=== PATIENT | female | born 1990 | race Caucasian/White ===

== ENCOUNTER 2017-02-16 04:59 | Inpatient (IN) | payer BC ==
[2017-02-16] MEDS ORDERED: Sodium Chloride 0.9% 10 ML Syringe FLUSH PRN (05:31)
[2017-02-16] MEDS ORDERED: Nalbuphine 10 MG/1 ML Vial IVPUSH PRN (05:31)
[2017-02-16] MEDS ORDERED: Methylergonovine 0.2 MG/1 ML Amp IM PRN (05:31)
[2017-02-16] MEDS ORDERED: Lidocaine 1% 50 ML MDV INJECT PRN (05:31)
[2017-02-16] MEDS ORDERED: Butorphanol 1 MG/ML SDV IVPUSH PRN (05:31)
[2017-02-16] MEDS ORDERED: Carboprost Tromethamine 250 MCG/1 ML Amp IM PRN (05:31)
[2017-02-16] MEDS ORDERED: Sodium Chloride 0.9% 2.5 ML Syringe FLUSH PRN (05:31)
[2017-02-16] MEDS ORDERED: Misoprostol 200 MCG Tab PO PRN (05:31)
[2017-02-16] MEDS ORDERED: Water For Irrigation,Sterile 1,000 ML Container IRR PRN (05:31)
[2017-02-16] MEDS ORDERED: Ondansetron 4 MG/2 ML SDV IV PRN (05:31)
[2017-02-16] MEDS ORDERED: Oxytocin/0.9 % Sodium Chloride 30 UNIT/500 ML BAG IV SCH (05:45)
[2017-02-16] MEDS: Lactated Ringers 1,000 ML IV SCH ×3 (05:58→08:30)
[2017-02-16] MEDS ORDERED: fentaNYL 100 MCG/2 ML SDV ONE (07:25)
[2017-02-16] MEDS ORDERED: Ropivacaine HCl/PF 100 ML ONE (07:26)
[2017-02-16] MEDS ORDERED: Ropivacaine 0.2% 2 MG/ML 20 ML SDV ONE (07:26)
--- NOTE | 2017-02-16 08:44 | PCM.PREANE ---
Preanesthetic Assessment - Anesthesia/Transfusion/Family Hx Anesthesia History: Prior Anesthesia Without Reaction Family History of Anesthesia Reaction: No Transfusion History: Prior Transfusion Without Reaction - Review of Systems General: No Symptoms Pulmonary: No Symptoms Cardiovascular: No Symptoms Gastrointestinal: No Symptoms Neurological: No Symptoms Other: Reports: None - Physical Assessment Height: 1.6 m Weight: 73.482 kg ASA Class: 2 Mental Status: Alert & Oriented x3 Airway Class: Mallampati = 2 Dentition: Reports: Normal Dentition Thyro-Mental Finger Breadths: 3 Mouth Opening Finger Breadths: 3 ROM/Head Extension: Full Lungs: Clear to Auscultation, Normal Respiratory Effort Cardiovascular: Regular Rate, Regular Rhythm - Lab Values: Laboratory Last Values WBC 9.16 K/uL (4.0-11.0) 02/16/17 05:46 RBC 4.17 M/uL (4.30-5.90) L 02/16/17 05:46 Hgb 12.3 g/dL (12.0-16.0) 02/16/17 05:46 Hct 38.0 % (36.0-46.0) 02/16/17 05:46 MCV 91.1 fL (80.0-98.0) 02/16/17 05:46 MCH 29.5 pg (27.0-32.0) 02/16/17 05:46 MCHC 32.4 g/dL (31.0-37.0) 02/16/17 05:46 RDW Std Deviation 45.4 fl (28.0-62.0) 02/16/17 05:46 RDW Coeff of Debbie 14 % (11.0-15.0) 02/16/17 05:46 Plt Count 221 K/uL (150-400) 02/16/17 05:46 MPV 9.70 fL (7.40-12.00) 02/16/17 05:46 Nucleated RBC % 0.0 /100WBC 02/16/17 05:46 Nucleated RBCs # 0 K/uL 02/16/17 05:46 Blood Type O POSITIVE 02/16/17 05:46 Antibody Screen NEGATIVE 02/16/17 05:46 - Allergies Allergies/Adverse Reactions: Allergies Allergy/AdvReac Type Severity Reaction Status Date / Time No Known Allergies Allergy Verified 07/19/16 21:03 - Blood Blood Available: Yes Product(s) Available: PRBC - Acknowledgements Anesthesia Type Planned: Epidural Pt an Appropriate Candidate for the Planned Anesthesia: Yes Alternatives and Risks of Anesthesia Discussed w Pt/Guardian: Yes Pt/Guardian Understands and Agrees with Anesthesia Plan: Yes PreAnesthesia Questionnaire Cardiovascular History: Reports: None Other Cardiovascular History: 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 [No Known Home Meds] 07/19/16 [History] - CURRENT (IN HOUSE) MEDS Current Meds: Current Medications Butorphanol Tartrate (Stadol) 1 mg IVPUSH Q1H PRN PRN Reason: Pain Carboprost Tromethamine (Hemabate Ds) 250 mcg IM ASDIRECTED PRN PRN Reason: Post Hemorrhage Lactated Ringer's (Ringers, Lactated) 1,000 mls @ 150 mls/hr IV ASDIRECTED POOL Last Admin: 02/16/17 08:30 Dose: 500 mls/hr Oxytocin/Sodium Chloride (Oxytocin 30 Unit/500 Ml-Ns) 30 unit in 500 mls @ 500 mls/hr IV TITRATE POOL Lidocaine HCl (Xylocaine 1%) 50 ml INJECT .ONCE PRN PRN Reason: Laceration repair Methylergonovine Maleate (Methergine) 0.2 mg IM ASDIRECTED PRN PRN Reason: Post Hemorrhage Misoprostol (Cytotec) 200 mcg PO .ONCE PRN PRN Reason: Post Hemorrhage Nalbuphine HCl (Nubain) 10 mg IVPUSH Q1H PRN PRN Reason: Pain (severe 7-10) Ondansetron HCl (Zofran) 4 mg IV Q4H PRN PRN Reason: Nausea/Vomiting Last Admin: 02/16/17 05:58 Dose: 4 mg Sodium Chloride (Saline Flush) 10 ml FLUSH ASDIRECTED PRN PRN Reason: Keep Vein Open Sodium Chloride (Saline Flush) 2.5 ml FLUSH ASDIRECTED PRN PRN Reason: Keep Vein Open Sterile Water (Sterile Water For Irrigation) 1,000 ml IRR ASDIRECTED PRN PRN Reason: delivery Discontinued Medications Fentanyl (Sublimaze) Confirm Administered Dose 300 mcg .ROUTE .STK-MED ONE Stop: 02/16/17 07:26 Ropivacaine (Naropin 0.2%) Confirm Administered Dose 100 mls @ as directed .ROUTE .STK-MED ONE Stop: 02/16/17 07:27 Ropivacaine (Naropin 0.2%) Confirm Administered Dose 20 ml .ROUTE .STK-MED ONE Stop: 02/16/17 07:27 - Pre-Procedure Checklist Attending Provider Aware: Yes Chart Reviewed: Yes Consent Signed: Yes Labs Reviewed: Yes VS/FHR Reviewed: Yes Patient Identification Confirmation Method: Reports: ID Band Visual, Verbal Patient Pt an Appropriate Candidate for the Planned Anesthesia: Yes Alternatives and Risks of Anesthesia Discussed w Pt/Guardian: Yes - Procedure Procedure Start Date: 02/16/17 Procedure Start Time: 07:[address]: Reports: Blood Pressure, Heart Rate, SPO2 Functional IV: Yes Bolus Infused (fluid type and amount): 1000 ml LR Safety Measures: Reports: Patient Identified, Procedure Verified, Site Verified , Procedure Time Out Patient Position: Reports: Sitting (@ 0739) Prep: Reports: Betadine x3, Sterile Drape Local Anesthetic: Reports: Intradermal Wheal w Lidocaine 1% Needle: Reports: 17 g Touhy Approach: Reports: Midline Technique: Reports: JEAN-PAUL Glass Syringe JEAN-PAUL Needle Depth (cm): 4 cm Parasthesia: Reports: None Fluid Obtained: Reports: None Catheter Depth at Skin (cm): 20 cm (@ 0746) Test Dose Time: 07:46 Test Dose Medication: Reports: Lidocaine 1.5% w Epinephrine 1:200,000 Test Dose Response: Reports: Negative Loading Dose Time: 07:51 (Given in 1 ml increments over 17 minutes) Loading Dose Medication: 100 mcg fentanyl followed by 2 ml 0.2% ropivacaine Loading Dose Patient Position: semi fowlers with MARCELLE Continuous Infusion Start Time: 08:08 Continuous Infusion Medication: 100 ml 0.2% ropivacaine with 200 mcg fentanyl added (2mcg/ml) Continuous Infusion Rate: 6 ml/hr Continuous Infusion PCS Bolus Option: 5 ml every 15 min Patient Position Post Placement: Reports: Semi-fowlers/MARCELLE Post-procedure Pain Level: "0/10" VS and FHR Monitored in Unit Post Placement: Yes Procedure End Date: 02/16/17 Procedure End Time: 08:45
[2017-02-16] MEDS ORDERED: Aluminum Hydroxide/Magnesium Hydroxide/Simethicone Susp 30 ML Cup PO PRN (17:54)
[2017-02-16] MEDS ORDERED: Witch Hazel Medicated Pads 40/Jar TOP PRN (17:54)
[2017-02-16] MEDS ORDERED: Ibuprofen 400 MG Tab PO PRN (17:54)
[2017-02-16] MEDS ORDERED: oxyCODONE 5 MG Tab PO PRN (17:54)
[2017-02-16] MEDS ORDERED: Acetaminophen 500 MG Tab PO PRN (17:54)
[2017-02-16] MEDS ORDERED: Bisacodyl 10 MG Supp RECTAL PRN (17:54)
[2017-02-16] MEDS ORDERED: Benzocaine/Menthol 20%-0.5% Spray 78 GM Cannister TOP PRN (17:54)
[2017-02-16] MEDS ORDERED: Docusate Sodium 100 MG Cap PO PRN (17:54)
[2017-02-16] MEDS ORDERED: Lanolin 100% Cream 7 GM Tube TOP PRN (17:54)
--- NOTE | 2017-02-16 18:59 | OR ---
SURGEON: Sydni Alexander M.D. DATE OF PROCEDURE: 02/16/2017 PREOPERATIVE DIAGNOSES: 1. 40 and 5-week intrauterine . 2. Spontaneous rupture of membranes. 3. Group B beta strep negative. 4. Labor. POSTOPERATIVE DIAGNOSES: 1. 40 and 5-week intrauterine . 2. Spontaneous rupture of membranes. 3. Group B beta strep negative. 4. Labor. PROCEDURE: Spontaneous vaginal delivery, intact perineum. ESTIMATED BLOOD LOSS: 300 mL. ANESTHESIA: Epidural. COMPLICATIONS: None. FINDINGS: Viable female. score 8 at 1 minute and 9 at 5 minutes. Weight of 4045 grams. Spontaneous delivery, intact placenta, and three-vessel cord. DISPOSITION: Infant to nursery and mom in LDRP, stable. 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 She was starting to feel some regular contractions. She denied any vaginal bleeding. She has noted good movement. On initial examination, the patient was found to be 1 to 2 cm, 60% effaced, -3 station. Therefore, she was admitted and routine labs were drawn. She was grossly ruptured. Clear fluid was present. Category-one heart tones were noted. The patient was then observed, and she did make spontaneous cervical change, became increasingly uncomfortable and underwent regional anesthesia in the form of epidural. She continued to progress throughout the afternoon hours. Shortly before 1 p.m., she was found to be 4 to 5 cm, 80% effaced, and -2 station. heart tones 140s. Shortly before 3:00 p.m., she was found to be complete, 100% effaced, and -1 station. She was allowed to continue to labor until she was approximately -1 to 0 station next hour. She began pushing efforts and pushed effectively for over the next hour. I was called for delivery. Upon my arrival, the patient was placed in modified dorsal lithotomy position. She was prepped and draped in the usual aseptic manner. She was +2 station. She continued with pushing efforts and was able to push adequately to a +4 station. Delivered the infant's head atraumatically, spontaneously, followed by anterior shoulder, posterior shoulder, and remainder of the body. There was a nuchal cord x1. This was reduced manually. The 's oropharynx and nares bulb suctioned. Cord was clamped x2 and cut. Infant was handed off to her mother with attending nursing staff at her side. Cord arterial, cord venous, and cord blood sampling was obtained. Light suprapubic pressure was applied while the placenta was delivered spontaneously intact. Vigorous fundal uterine massage was then applied while 30 units of Pitocin was delivered in 500 mL of IV fluid. Upon inspection of cervix, vaginal sidewalls, perineum, these were found to be intact. The patient has tolerated this procedure well overall. Uterus remained firm. Hemostasis evident. Sponge count is correct. The patient remained in LDRP and in nursery. VERITO LIU /[id number]
[2017-02-17] MEDS: Acetaminophen 500 MG Tab PO PRN ×2 (03:54→13:20)
--- NOTE | 2017-02-17 08:32 | PCM.PNPP ---
<Peg Flores - Last Filed: 02/17/17 08:28> - General Info Date of Service: 02/17/17 Functional Status: Reports: Pain Controlled, Tolerating Diet, Ambulating, Urinating - Review of Systems General: Denies: Fever, Weakness, Fatigue Pulmonary: Denies: Shortness of Breath, Pleuritic Chest Pain, Cough Cardiovascular: Denies: Chest Pain, Palpitations, Dyspnea on Exertion Gastrointestinal: Denies: Abdominal Pain, Constipation, Diarrhea - General Info Date of Service: 02/17/17 - Patient Data Vital Signs - Most Recent: Last Vital Signs Temp 36.6 C 02/17/17 04:00 Pulse 68 02/17/17 04:00 Resp 18 02/17/17 04:00 BP 101/61 02/17/17 04:00 Pulse Ox 97 02/17/17 04:00 Weight - Most Recent: 73.482 kg I&O - Last 24 Hours: Intake & Output 02/16/17 02/17/17 02/17/17 22:59 06:59 14:59 Output Total 1800 Balance -1800 Lab Results - Last 24 Hours: Laboratory Results - last 24 hr 02/17/17 Range/Units 05:22 Hgb 9.9 L (12.0-16.0) g/dL Hct 30.7 L (36.0-46.0) % Med Orders - Current: Current Medications Acetaminophen (Tylenol Extra Strength) 500 mg PO Q4H PRN PRN Reason: Pain Last Admin: 02/17/17 03:54 Dose: 500 mg Acetaminophen (Tylenol Extra Strength) 1,000 mg PO Q4H PRN PRN Reason: Pain Al Hydroxide/Mg Hydroxide (Mag-Al Plus) 30 ml PO Q8H PRN PRN Reason: Heartburn Benzocaine/Menthol (Dermoplast Pain Relief 20%-0.5% [place]) 78 gm TOP ASDIRECTED PRN PRN Reason: Perineal Comfort Measure Bisacodyl (Dulcolax) 10 mg RECTAL .ONCE PRN PRN Reason: Constipation Carboprost Tromethamine (Hemabate Ds) 250 mcg IM ASDIRECTED PRN PRN Reason: Post Hemorrhage Docusate Sodium (Colace) 100 mg PO BID PRN PRN Reason: Constipation Emollient Ointment (Lansinoh Hpa) 0 gm TOP ASDIRECTED PRN PRN Reason: Sore Nipples Last Admin: 02/16/17 22:38 Dose: 7 gm Lactated Ringer's (Ringers, Lactated) 1,000 mls @ 150 mls/hr IV ASDIRECTED POOL Last Admin: 02/16/17 08:30 Dose: 500 mls/hr Oxytocin/Sodium Chloride (Oxytocin 30 Unit/500 Ml-Ns) 30 unit in 500 mls @ 500 mls/hr IV TITRATE POOL Last Admin: 02/16/17 17:28 Dose: 500 mls/hr Ibuprofen (Motrin) 400 mg PO Q4H PRN PRN Reason: Pain Last Admin: 02/16/17 22:39 Dose: 400 mg Ibuprofen (Motrin) 800 mg PO Q6H PRN PRN Reason: Pain Methylergonovine Maleate (Methergine) 0.2 mg IM ASDIRECTED PRN PRN Reason: Post Hemorrhage Ondansetron HCl (Zofran) 4 mg IV Q4H PRN PRN Reason: Nausea/Vomiting Last Admin: 02/16/17 05:58 Dose: 4 mg Oxycodone HCl (Oxycodone) 5 mg PO Q2H PRN PRN Reason: Pain Last Admin: 02/17/17 03:55 Dose: 5 mg Sodium Chloride (Saline Flush) 10 ml FLUSH ASDIRECTED PRN PRN Reason: Keep Vein Open Witch Angy (Tucks) 1 pad TOP ASDIRECTED PRN PRN Reason: comfort care Discontinued Medications Butorphanol Tartrate (Stadol) 1 mg IVPUSH Q1H PRN PRN Reason: Pain Fentanyl (Sublimaze) Confirm Administered Dose 300 mcg .ROUTE .STK-MED ONE Stop: 02/16/17 07:26 Ropivacaine (Naropin 0.2%) Confirm Administered Dose 100 mls @ as directed .ROUTE .STK-MED ONE Stop: 02/16/17 07:27 Lidocaine HCl (Xylocaine 1%) 50 ml INJECT .ONCE PRN PRN Reason: Laceration repair Misoprostol (Cytotec) 200 mcg PO .ONCE PRN PRN Reason: Post Hemorrhage Nalbuphine HCl (Nubain) 10 mg IVPUSH Q1H PRN PRN Reason: Pain (severe 7-10) Ropivacaine (Naropin 0.2%) Confirm Administered Dose 20 ml .ROUTE .STK-MED ONE Stop: 02/16/17 07:27 Sodium Chloride (Saline Flush) 2.5 ml FLUSH ASDIRECTED PRN PRN Reason: Keep Vein Open Sterile Water (Sterile Water For Irrigation) 1,000 ml IRR ASDIRECTED PRN PRN Reason: delivery Last Admin: 02/16/17 17:20 Dose: 1,000 ml - Infant Interaction Disposition, : [place] in Room with Family Infant Interaction: To Nursery to Visit Infant Feeding: Attempted ; Nursed Fair/Poor Support Person: Significant Other - Recovery Exam Fundal Tone: Firm Fundal Level: 1 Fingerbreadths Below Umbilicus Fundal Placement: Midline Lochia Amount: Scant Perineum Description: Intact, Minimal Bruising/Swelling Episiotomy/Laceration: None Bladder Status: Voiding Urinary Elimination: Voided - Exam General: Alert, Oriented Neck: Supple Lungs: Clear to Auscultation, Normal Respiratory Effort Cardiovascular: Regular Rate, Regular Rhythm GI/Abdominal Exam: Normal Bowel Sounds, Soft, Non-Tender, No Organomegaly, No Distention, No Abnormal Bruit, No Mass, Pelvis Stable Extremities: Normal Inspection, Normal Range of Motion, Non-Tender, Normal Capillary Refill, Pedal Edema (trace) Psy/Mental Status: Alert, Normal Affect, Normal Mood - Problem List & Annotations (1) Vaginal delivery SNOMED Code(s): 141412781 Code(s): O80 - ENCOUNTER FOR FULL-TERM UNCOMPLICATED DELIVERY Status: Acute Current Visit: Yes - Problem List Review Problem List Initiated/Reviewed/Updated: Yes - Assessment Assessment:: PPD#1 from . Minimal pain and lochia. Breast feeding well. Discharge home today. - Plan Plan:: Discharge home today. Nothing in the vagina for 6 weeks. Continue PNV while breast feeding. Can use OTC ibuprofen/tylenol as needed for pain. Instructed patient to call if she develops fever greater than 101 or bleeding through a large pad an hour. F/U with [facility] in 6 weeks. <Sydni Alexander R - Last Filed: 02/17/17 08:36> - Patient Data Vital Signs - Most Recent: Last Vital Signs Temp 36.6 C 02/17/17 04:00 Pulse 68 02/17/17 04:00 Resp 18 02/17/17 04:00 BP 101/61 02/17/17 04:00 Pulse Ox 97 02/17/17 04:00 I&O - Last 24 Hours: Intake & Output 02/16/17 02/17/17 02/17/17 22:59 06:59 14:59 Output Total 1800 Balance -1800 Lab Results - Last 24 Hours: Laboratory Results - last 24 hr 02/17/17 Range/Units 05:22 Hgb 9.9 L (12.0-16.0) g/dL Hct 30.7 L (36.0-46.0) % Med Orders - Current: Current Medications Acetaminophen (Tylenol Extra Strength) 500 mg PO Q4H PRN PRN Reason: Pain Last Admin: 02/17/17 03:54 Dose: 500 mg Acetaminophen (Tylenol Extra Strength) 1,000 mg PO Q4H PRN PRN Reason: Pain Al Hydroxide/Mg Hydroxide (Mag-Al Plus) 30 ml PO Q8H PRN PRN Reason: Heartburn Benzocaine/Menthol (Dermoplast Pain Relief 20%-0.5% [place]) 78 gm TOP ASDIRECTED PRN PRN Reason: Perineal Comfort Measure Bisacodyl (Dulcolax) 10 mg RECTAL .ONCE PRN PRN Reason: Constipation Carboprost Tromethamine (Hemabate Ds) 250 mcg IM ASDIRECTED PRN PRN Reason: Post Hemorrhage Docusate Sodium (Colace) 100 mg PO BID PRN PRN Reason: Constipation Emollient Ointment (Lansinoh Hpa) 0 gm TOP ASDIRECTED PRN PRN Reason: Sore Nipples Last Admin: 02/16/17 22:38 Dose: 7 gm Lactated Ringer's (Ringers, Lactated) 1,000 mls @ 150 mls/hr IV ASDIRECTED POOL Last Admin: 02/16/17 08:30 Dose: 500 mls/hr Oxytocin/Sodium Chloride (Oxytocin 30 Unit/500 Ml-Ns) 30 unit in 500 mls @ 500 mls/hr IV TITRATE POOL Last Admin: 02/16/17 17:28 Dose: 500 mls/hr Ibuprofen (Motrin) 400 mg PO Q4H PRN PRN Reason: Pain Last Admin: 02/16/17 22:39 Dose: 400 mg Ibuprofen (Motrin) 800 mg PO Q6H PRN PRN Reason: Pain Methylergonovine Maleate (Methergine) 0.2 mg IM ASDIRECTED PRN PRN Reason: Post Hemorrhage Ondansetron HCl (Zofran) 4 mg IV Q4H PRN PRN Reason: Nausea/Vomiting Last Admin: 02/16/17 05:58 Dose: 4 mg Oxycodone HCl (Oxycodone) 5 mg PO Q2H PRN PRN Reason: Pain Last Admin: 02/17/17 03:55 Dose: 5 mg Sodium Chloride (Saline Flush) 10 ml FLUSH ASDIRECTED PRN PRN Reason: Keep Vein Open Witch Angy (Tucks) 1 pad TOP ASDIRECTED PRN PRN Reason: comfort care Discontinued Medications Butorphanol Tartrate (Stadol) 1 mg IVPUSH Q1H PRN PRN Reason: Pain Fentanyl (Sublimaze) Confirm Administered Dose 300 mcg .ROUTE .STK-MED ONE Stop: 02/16/17 07:26 Ropivacaine (Naropin 0.2%) Confirm Administered Dose 100 mls @ as directed .ROUTE .STK-MED ONE Stop: 02/16/17 07:27 Lidocaine HCl (Xylocaine 1%) 50 ml INJECT .ONCE PRN PRN Reason: Laceration repair Misoprostol (Cytotec) 200 mcg PO .ONCE PRN PRN Reason: Post Hemorrhage Nalbuphine HCl (Nubain) 10 mg IVPUSH Q1H PRN PRN Reason: Pain (severe 7-10) Ropivacaine (Naropin 0.2%) Confirm Administered Dose 20 ml .ROUTE .STK-MED ONE Stop: 02/16/17 07:27 Sodium Chloride (Saline Flush) 2.5 ml FLUSH ASDIRECTED PRN PRN Reason: Keep Vein Open Sterile Water (Sterile Water For Irrigation) 1,000 ml IRR ASDIRECTED PRN PRN Reason: delivery Last Admin: 02/16/17 17:20 Dose: 1,000 ml - My Orders Last 24 Hours: My Active Orders 02/16/17 17:54 May Shower [RC] ASDIRECTED Up ad Leonela [RC] ASDIRECTED Vital Signs [RC] PER UNIT ROUTINE Acetaminophen [Tylenol Extra Strength] 1,000 mg PO Q4H PRN Acetaminophen [Tylenol Extra Strength] 500 mg PO Q4H PRN Alum Hydrox/Mag Hydrox/Simeth [Mag-Al Plus] 30 ml PO Q8H PRN Benzocaine/Menthol [Dermoplast Pain Relief 20%-0.5% [place]] 78 gm TOP ASDIRECTED PRN Bisacodyl [Dulcolax] 10 mg RECTAL .ONCE PRN Docusate Sodium [Colace] 100 mg PO BID PRN Ibuprofen [Motrin] 400 mg PO Q4H PRN Ibuprofen [Motrin] 800 mg PO Q6H PRN Lanolin [Lansinoh HPA] See Dose Instructions TOP ASDIRECTED PRN Witch Angy [Tucks] 1 pad TOP ASDIRECTED PRN oxyCODONE 5 mg PO Q2H PRN Assess Lochia [WOMSER] Per Unit Routine Assess Uterine Involution [WOMSER] Per Unit Routine Breast Pump [WOMSER] Per Unit Routine Peripheral IV Discontinue [OM.PC] Routine 02/16/17 17:55 Ice Therapy [OM.PC] Per Unit Routine Perineal Care [OM.PC] Per Unit Routine Sitz Bath [OM.PC] Per Unit Routine 02/16/17 Dinner Regular Diet [DIET] - Plan Plan:: patient seen and examined--agree with above
[2017-02-17] MEDS: Ibuprofen 800 MG Tab PO PRN ×2 (08:40→15:08)
[2017-02-17 15:54] VITALS: BP 115/56
--- NOTE | 2017-02-17 19:47 | PCM48HPAN ---
Post Anesthesia Note - EVALUATION WITHIN 48HRS OF ANESTHETIC Vital Signs in Normal Range: Yes Patient Participated in Evaluation: Yes Respiratory Function Stable: Yes Airway Patent: Yes Cardiovascular Function Stable: Yes Hydration Status Stable: Yes Pain Control Satisfactory: Yes Nausea and Vomiting Control Satisfactory: Yes Mental Status Recovered: Yes
== END 2017-02-17 21:04 | disposition home or self-care (01) | DRG 560 ==
LOC: MW.OBCHECK 04:59 → MW.OB 05:01 → MW.OBCHECK 05:31 → MW.OB 05:31 → OBSVTOIN 19:13 → MW.OB 20:51
PROVIDERS: ADMIT Obstetrics & Gynecology; ATTEND Obstetrics & Gynecology
PROC: 10E0XZZ Delivery of Products of Conception, External Approach (ICD-10-PCS; principal; 2017-02-16)
DX: O69.1XX0 Labor and delivery complicated by cord around neck, with compression, not applicable or unspecified (principal); Z3A.40 40 weeks gestation of pregnancy; Z37.0 Single live birth
CPT/HCPCS: 01967; 36415; 59025; 59409; 85014; 85018; 85027; 86850; 86900; 86901; A9270-GY; J2405; J2590; J7120

== ENCOUNTER 2017-02-22 22:29 | Emergency (ER) | payer BC ==
[2017-02-22] MEDS ORDERED: Sodium Chloride 0.9% 10 ML Syringe FLUSH PRN (22:48)
[2017-02-22] MEDS ORDERED: Sodium Chloride 0.9% 2.5 ML Syringe FLUSH PRN (22:48)
[2017-02-22 23:36] LABS: CHLORIDE,CL 110 mmol/L (98-110); SODIUM,NA 140 mmol/L (136-146)
[2017-02-23] MEDS ORDERED: Sodium Chloride 0.9% 1,000 ML IV ONE (01:36)
--- NOTE | 2017-02-23 01:51 | EDM.PDOC ---
ED HPI GENERAL MEDICAL PROBLEM - General Chief Complaint: Cardiovascular Problem Stated Complaint: HEART PALPITATIONS/TROUBLE BREATHING Time Seen by Provider: 02/22/17 22:39 Source of Information: Reports: Patient History Limitations: Reports: No Limitations - History of Present Illness INITIAL COMMENTS - FREE TEXT/NARRATIVE: HISTORY AND PHYSICAL: History of present illness: [26-year-old female 5 days status post spontaneous vaginal delivery now presents to the emergency department complaining of palpitations associated with mild shortness of breath.patient is feeling mildly anxiousMs. under a lot of stress. She's had no exertional chest pain She has no productive cough or fever. Patient has never had a blood clot nor has she had any long car or airplane trips. No history of hypercoagulability. Patient has no personal cardiac history except mmediately after she was born premature at 31 weeks gestation. Patient is breast-feeding Review of systems: As per history of present illness and below otherwise all systems reviewed and negative. Past medical history: As per history of present illness and as reviewed below otherwise noncontributory. Surgical history: As per history of present illness and as reviewed below otherwise noncontributory. Social history: No reported history of drug or alcohol abuse. Family history: As per history of present illness and as reviewed below otherwise noncontributory. Physical exam:ildly anxious appearing 26-year-old female. No acute distress. Alert communicative and cooperative and appropriate. Supple neck. Clear lungs regular rate and rhythm no tachycardia. Benign abdomennormal extremities nonfocal neuro HEENT: Atraumatic, normocephalic, pupils reactive, negative for conjunctival pallor or scleral icterus, mucous membranes moist, throat clear, neck supple, nontender, trachea midline. Lungs: Clear to auscultation, breath sounds equal bilaterally, chest nontender. Heart: S1S2, regular, negative for clicks, rubs, or JVD. Abdomen: Soft, nondistended, nontender. Negative for masses or hepatosplenomegaly. Negative for costovertebral tenderness. Pelvis: Stable nontender. Genitourinary: Deferred. Rectal: Deferred. Extremities: Atraumatic, negative for cords or calf pain. Neurovascular unremarkable. Neuro: Awake, alert, oriented. Cranial nerves unremarkable. Cerebellum unremarkable. Motor and sensory unremarkable throughout. Exam nonfocal. Diagnostics: [chest x-ray normal no acute disease interpreted by me eKG with normal sinus rhythm at 53 normal axis no STEMI] Therapeutics: [] Impression: [] Plan: [patient 5 days now with palpitations. Normal respiratory rate and pulse ox. EKG unremarkable. Chest x-ray benign. Other than recentpregnancy patient is without significant PE risk factors. D-dimer abnormal so CTA of the chest will be done. On reevaluation and discussion of workup patient is emotional and tearful and appears to be feeling under a lot of stress, suggestive of a clearly contributory anxiety component. Patient denies suicidality Will follow radiologic results and correlate clinically with reevaluation.] d-dimer elevated. Remainder workup benign. CTA of the chest negative for PE or other acute process. Default diagnosis of palpitations and anxiety exacerbation in the setting of suspected anxiety. Patient denies depression or SI. She stable on reevaluation prior to discharge. No further workup or treatment indicated at this time patient agrees with outpatient follow-up and strict return precautions given. Definitive disposition and diagnosis as appropriate pending reevaluation and review of above. chest area Pain Score (Numeric/FACES): 2 - Related Data Allergies Allergy/AdvReac Type Severity Reaction Status Date / Time No Known Allergies Allergy Verified 02/22/17 22:39 Home Meds: Home Meds . 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 Respiratory History: Reports: None Gastrointestinal History: Reports: None Genitourinary History: Reports: None CHILD WELFARE CONSULTANT History: Reports: Musculoskeletal History: Reports: None Neurological History: Reports: None Psychiatric History: Reports: None Endocrine/Metabolic History: Reports: None Hematologic History: Reports: None Immunologic History: Reports: None Oncologic (Cancer) History: Reports: None Dermatologic History: Reports: Other (See Below) Other Dermatologic History: breast lump - Infectious Disease History Infectious Disease History: Reports: Chicken Pox - Past Surgical History Head Surgeries/Procedures: Reports: None HEENT Surgical History: Reports: Oral Surgery, Tonsillectomy Female Surgical History: Reports: Other (See Below) Dermatological Surgical History: Reports: Other (See Below) Social & Family History - Family History Family Medical History: Noncontributory - Tobacco Use Smoking Status *Q: Never Smoker Second Hand Smoke Exposure: No - Caffeine Use Caffeine Use: Reports: None - Recreational Drug Use Recreational Drug Use: No ED ROS GENERAL - Review of Systems Review Of Systems: See Below (history of present illness) ED EXAM, GENERAL - Physical Exam Exam: See Below (history of present illness) Course - Vital Signs Last Recorded V/S: Last Vital Signs Temp 36.1 C 02/22/17 22:39 Pulse 72 02/23/17 03:30 Resp 18 02/22/17 22:39 BP 125/69 02/23/17 03:30 Pulse Ox 98 02/22/17 22:39 - Orders/Labs/Meds Orders: Active Orders 24 hr Category Date Time Status EKG 12 Lead [EKG Documentation Completion] [RC] STAT Care 02/22/17 22:48 Active CTA Chest W WO Contrast [Ang Chest] [CT] Stat Exams 02/23/17 01:37 Taken Chest 1V Frontal [CR] Stat Exams 02/22/17 22:48 Taken Sodium Chloride 0.9% [Saline Flush] Med 02/22/17 22:48 Active 10 ml FLUSH ASDIRECTED PRN Sodium Chloride 0.9% [Saline Flush] Med 02/22/17 22:48 Active 2.5 ml FLUSH ASDIRECTED PRN Peripheral IV Insertion Adult [OM.PC] Stat Oth 02/22/17 22:48 Ordered Medication Orders Sodium Chloride (Saline Flush) 10 ml FLUSH ASDIRECTED PRN PRN Reason: Keep Vein Open Sodium Chloride (Saline Flush) 2.5 ml FLUSH ASDIRECTED PRN PRN Reason: Keep Vein Open Labs: Laboratory Tests 02/22/17 02/22/17 02/22/17 Range/Units 23:05 23:05 23:05 WBC 9.27 (4.0-11.0) K/uL RBC 4.62 (4.30-5.90) M/uL Hgb 13.7 (12.0-16.0) g/dL Hct 41.7 (36.0-46.0) % MCV 90.3 (80.0-98.0) fL MCH 29.7 (27.0-32.0) pg MCHC 32.9 (31.0-37.0) g/dL RDW Std Deviation 46.0 (28.0-62.0) fl RDW Coeff of Debbie 14 (11.0-15.0) % Plt Count 271 (150-400) K/uL MPV 9.20 (7.40-12.00) fL Neut % (Auto) 57.4 (48.0-80.0) % Lymph % (Auto) 29.0 (16.0-40.0) % Benton % (Auto) 11.8 (0.0-15.0) % Eos % (Auto) 1.6 (0.0-7.0) % Baso % (Auto) 0.2 (0.0-1.5) % Neut # (Auto) 5.3 (1.4-5.7) K/uL Lymph # (Auto) 2.7 H (0.6-2.4) K/uL Benton # (Auto) 1.1 H (0.0-0.8) K/uL Eos # (Auto) 0.2 (0.0-0.7) K/uL Baso # (Auto) 0.0 (0.0-0.1) K/uL Nucleated RBC % 0.0 /100WBC Nucleated RBCs # 0 K/uL D-Dimer, Quantitative (0.0-0.52) mg/LFEU Sodium 140 (136-146) mmol/L Potassium 3.5 (3.5-5.1) mmol/L Chloride 110 (98-110) mmol/L Carbon Dioxide 20 L (21-31) mmol/L BUN 11 (6.0-23.0) mg/dL Creatinine 0.6 (0.6-1.5) mg/dL Est Cr Clr Drug Dosing 115.47 mL/min Estimated GFR (MDRD) > 60.0 ml/min Glucose 84 (60-110) mg/dL Calcium 9.3 (8.8-10.8) mg/dL Total Bilirubin 0.3 (0.1-1.5) mg/dL AST 31 (5-40) IU/L ALT 32 (8-54) IU/L Alkaline Phosphatase 140 (40-150) Troponin I < 0.10 (0.0-0.29) NG/ML Total Protein 6.8 (6.0-8.0) g/dL Albumin 3.6 (3.5-5.0) g/dL Globulin 3.2 (2.0-3.5) g/dL Albumin/Globulin Ratio 1.1 L (1.3-2.8) TSH 3rd Generation 1.20 (0.47-5.0) uIU/mL 02/22/17 Range/Units 23:05 WBC (4.0-11.0) K/uL RBC (4.30-5.90) M/uL Hgb (12.0-16.0) g/dL Hct (36.0-46.0) % MCV (80.0-98.0) fL MCH (27.0-32.0) pg MCHC (31.0-37.0) g/dL RDW Std Deviation (28.0-62.0) fl RDW Coeff of Debbie (11.0-15.0) % Plt Count (150-400) K/uL MPV (7.40-12.00) fL Neut % (Auto) (48.0-80.0) % Lymph % (Auto) (16.0-40.0) % Benton % (Auto) (0.0-15.0) % Eos % (Auto) (0.0-7.0) % Baso % (Auto) (0.0-1.5) % Neut # (Auto) (1.4-5.7) K/uL Lymph # (Auto) (0.6-2.4) K/uL Benton # (Auto) (0.0-0.8) K/uL Eos # (Auto) (0.0-0.7) K/uL Baso # (Auto) (0.0-0.1) K/uL Nucleated RBC % /100WBC Nucleated RBCs # K/uL D-Dimer, Quantitative 1.03 H (0.0-0.52) mg/LFEU Sodium (136-146) mmol/L Potassium (3.5-5.1) mmol/L Chloride (98-110) mmol/L Carbon Dioxide (21-31) mmol/L BUN (6.0-23.0) mg/dL Creatinine (0.6-1.5) mg/dL Est Cr Clr Drug Dosing mL/min Estimated GFR (MDRD) ml/min Glucose (60-110) mg/dL Calcium (8.8-10.8) mg/dL Total Bilirubin (0.1-1.5) mg/dL AST (5-40) IU/L ALT (8-54) IU/L Alkaline Phosphatase (40-150) Troponin I (0.0-0.29) NG/ML Total Protein (6.0-8.0) g/dL Albumin (3.5-5.0) g/dL Globulin (2.0-3.5) g/dL Albumin/Globulin Ratio (1.3-2.8) TSH 3rd Generation (0.47-5.0) uIU/mL Meds: Medications Generic Name Dose Route Start Last Admin Trade Name Freq PRN Reason Stop Dose Admin Sodium Chloride 10 ml 02/22/17 22:48 Saline Flush FLUSH ASDIRECTED PRN Keep Vein Open Sodium Chloride 2.5 ml 02/22/17 22:48 Saline Flush FLUSH ASDIRECTED PRN Keep Vein Open Discontinued Medications Generic Name Dose Route Start Last Admin Trade Name Freq PRN Reason Stop Dose Admin Sodium Chloride 1,000 mls @ 999 mls/hr 02/23/17 01:36 02/23/17 01:48 Normal Saline IV 02/23/17 02:36 999 mls/hr STAT ONE Administration Iopamidol 50 ml 02/23/17 03:09 02/23/17 03:10 Isovue-370 (76%) IV 02/23/17 03:10 50 ml ONETIME STA Administration Departure - Departure Time of Disposition: 06:16 Disposition: Home, Self-Care 01 Condition: Good Clinical Impression: Palpitations, anxiety Referrals: PCP,None [Primary Care Provider] - Forms: ED Department Discharge Additional Instructions: It is not clear what caused your palpitations this evening. A full workup was unremarkable . Rest and drink plenty of fluids. Be aware that anyone in the immediate setting is under a lot of stress, so be sure to get adequate emotional support as well as help with day-to-day activities from close family and friends. follow-up with your tomorrow and return immediately for new severe or worsening symptoms - My Orders Last 24 Hours: My Active Orders 02/22/17 22:48 EKG 12 Lead [EKG Documentation Completion] [RC] STAT Chest 1V Frontal [CR] Stat Sodium Chloride 0.9% [Saline Flush] 10 ml FLUSH ASDIRECTED PRN Sodium Chloride 0.9% [Saline Flush] 2.5 ml FLUSH ASDIRECTED PRN Peripheral IV Insertion Adult [OM.PC] Stat 02/23/17 01:37 CTA Chest W WO Contrast [Ang Chest] [CT] Stat - Assessment/Plan Last 24 Hours: My Active Orders 02/22/17 22:48 EKG 12 Lead [EKG Documentation Completion] [RC] STAT Chest 1V Frontal [CR] Stat Sodium Chloride 0.9% [Saline Flush] 10 ml FLUSH ASDIRECTED PRN Sodium Chloride 0.9% [Saline Flush] 2.5 ml FLUSH ASDIRECTED PRN Peripheral IV Insertion Adult [OM.PC] Stat 02/23/17 01:37 CTA Chest W WO Contrast [Ang Chest] [CT] Stat
[2017-02-23] MEDS ORDERED: Iopamidol 755 MG/ML 50 ML Bottle IV STA (03:09)
[2017-02-23 06:02] VITALS: BP 125/69
--- NOTE | 2017-02-24 14:23 | CR ---
EXAM DATE: 02/22/17 PATIENT'S AGE: 26 Patient: ARTHUR HORNER Facility: [place], [place] Site . Site : 1990 Study: XRay Chest [id number]/30/2017 11:16:03 PM Ordering Physician: Winston Kendrick Final Report: CHEST 1 VIEW AP INDICATION: Chest pain. IMPRESSION: Normal heart size and vascular pattern. Lungs are clear. No pneumothorax or pleural abnormality. ECG Monitor leads projected over the patient. Dictated by German Smith MD @ Feb 22 2017 11:33PM (Electronic Signature) Report Signed by Proxy. DIMA
--- NOTE | 2017-02-24 14:28 | CT ---
EXAM DATE: 02/22/17 PATIENT'S AGE: 26 Patient: ARTHUR HORNER Facility: [place], [place] Site . Site : 1990 Study: CT Chest Angio [id number] PE-02/23/2017 3:16:03 AM Ordering Physician: Winston Kendrick Final Report: INDICATION: Palpitations, Elevated D-dimer, 6 Days Post TECHNIQUE: CT chest pulmonary angiogram acquired with IV contrast COMPARISON: None FINDINGS: Cardiovascular structures: Normal vascular enhancement of the pulmonary arteries , no sign of pulmonary embolism. Heart size is normal. No sign of aneurysm or dissection in the thoracic aorta. Mediastinum and elliott: No mass or adenopathy. Lungs: No focal solid patient, pleural effusion, or pneumothorax. Scattered calcified granulomata Chest wall and axilla: No mass or adenopathy. Bones: No significant findings. Upper abdomen: Unremarkable. IMPRESSION: 1. No evidence of pulmonary embolism. 2. No acute cardiopulmonary disease. Dictated by Ronni Li MD @ 02/23/2017 5:37:32 AM Dictated by: Ronni Li MD @ 02/23/2017 05:37:54 (Electronic Signature) Report Signed by Proxy. [facility]
== END 2017-02-23 06:50 | disposition home or self-care (01) ==
LOC: MW.ED 22:29
DX: O99.345 Other mental disorders complicating the puerperium (principal); F41.9 Anxiety disorder, unspecified
CPT/HCPCS: 36415; 71010; 71275; 80053; 84443; 84484; 85025; 85379; 93005; 96360; 99285; J7040; Q9967; 99283